=== PATIENT | male | born 1955 | race Caucasian/White ===

== ENCOUNTER 2017-02-20 19:24 | Inpatient (IN) | payer BC ==
--- NOTE | ~2017-02-20 | CN ---
Consultation Report [facility] [address] [place]. [address] NAME: KODAK DOMÍNGUEZ : 57 STATUS : ADM Sharlene PAT#: [id number] AGE: 61 ADM/REG DATE : 02/20/17 MR#: [id number] REPORT SERV DATE: 02/21/17 DICTATED BY: TIMBO TUTTLE DATE: 02/21/17 REPORT STATUS : Draft TRANSCRIBED BY: MODL DATE: 02/21/17 PALLIATIVE CARE CONSULT DATE OF CONSULTATION: 02/21/2017 HISTORY OF PRESENT ILLNESS: The patient is a 61-year-old white male who back around [place] developed some low back pain that persisted and some cough and this eventually led to a biopsy-proven diagnosis of metastatic lung cancer on 01/07/2017. He was also found to have spine, liver, and cerebellar METS. He had one dose radiation to the brain. He was supposed to come back from vacation this week or next week and begin more chemotherapy. He had been on steroids and had to be tapered off those before chemotherapy could be started according to the patient and his . In the meantime on , he had an abrupt decline with severe worsening of his back pain where he had been able to walk around the house slowly and carefully. He now found he could not. The pain was rated as 10/10. He has been seen by Palliative Care, Dr. Tray Schultz [facility] the [facility]. He is now largely bed-bound and his left leg is weak. Now, on a Dilaudid DOUBLE REAMER OPERATOR and a 100 mcg fentanyl patch, he rates his pain as 9/10 going from the lower back into the hips and down the left leg. It is worsened with bending over. It is stabbing like pain. The patient has also had some confusion and drowsiness some of which preceded the Dilaudid DOUBLE REAMER OPERATOR. He has had some difficulty word finding. With me, he is appropriate but drowsy. PAST MEDICAL HISTORY: Pertinent for superficial DVT, hyperlipidemia, and history of colon polyps. FAMILY HISTORY: He is adopted, so he does not know his family history. ALLERGIES: HE HAS NO ALLERGIES. SOCIAL HISTORY: He does have a [id number] history. He quit smoking about 19 years ago after two packs a day for years. Occasional alcohol without problem. 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 He has been twice. Current is with him. He came with one child and she came with one child, both of whom are adults. He had some college. REVIEW OF SYSTEMS: He notes low back pain as described above. Also cough as mentioned above. He has had occasional difficulty word finding, but does appear oriented. REVIEW OF SYSTEMS: He also mentioned that he has had a 35-pound weight loss. PHYSICAL EXAMINATION: VITAL SIGNS: 130/64, 20, 101, 98.7. GENERAL: Pleasant, drowsy, but appropriate white male. HEENT: Pupils are equal. Extraocular motions are intact. No jaundice noted. Consultation Report [place] [id number] [facility] [place]. [address] NAME: KODAK DOMÍNGUEZ : 57 STATUS : ADM Sharlene PAT#: [id number] AGE: 61 ADM/REG DATE : 02/20/17 MR#: [id number] REPORT SERV DATE: 02/21/17 DICTATED BY: TIMBO TUTTLE DATE: 02/21/17 REPORT STATUS : Draft TRANSCRIBED BY: SHERI DATE: 02/21/17 NECK: No carotid bruits are heard. No thyroid masses. LUNGS: Clear without rales or rhonchi. HEART: Regular sinus rhythm without murmurs or gallops, little fast. ABDOMEN: Soft. Active bowel sounds. NEUROLOGIC: He is weak in the left leg and cannot lift it off the bed. Right leg is okay. I believe the patient does have capacity even though he is a little drowsy and has some word finding difficulty. I discussed his care with them. They still wish to try to get chemotherapy and pursue treatment, but he says if it comes down what he wants quality of life over quantity of life, and we discussed DNR and they were agreeable with that. Also wants to do an Advanced Care Plan and designate his as his surrogate. I have already spoken to the social worker masters on the floor about getting that done. In the meantime, I am going to recommend, we add to his current regimen a small amount of methadone, but has unique action on the NMDA receptors and may give him some additional relief. GP/MODL Timbo Tuttle MD / [id number] CC: Satya Mike M.D. NO PCP
--- NOTE | ~2017-02-20 | HP ---
History And Physical [place] [id number] [facility] [place]. [address] NAME: KODAK DOMÍNGUEZ : 57 STATUS : ADM Sharlene PAT#: [id number] AGE: 61 ADM/REG DATE : 02/20/17 MR#: [id number] REPORT SERV DATE: 02/20/17 DICTATED BY: DORY MCGOVERN DATE: 02/20/17 REPORT STATUS : Draft TRANSCRIBED BY: MODL DATE: 02/20/17 DATE OF ADMISSION: 02/20/2017 CHIEF COMPLAINT: A 61-year-old male with metastatic lung cancer, now presenting with uncontrolled pain, leg swelling, constipation. HISTORY OF PRESENT ILLNESS: The patient's history was obtained through careful interview with the patient and , coupled with review of [facility]. The patient was first diagnosed with large right upper lung cancer from biopsy in 01/07/2017 and has been followed by Dr. Cordova with anticipated chemotherapy to be started sometime this summer. He has known metastases to the right cerebellum to the spine to the liver and to the lymph nodes of the mediastinum. The patient has undergone one treatment of radiation to the brain on 02/09/2017 under the care of Dr. Ballesteros. The patient's main complaint has been increasing back pain. He has known metastases to the spine and is considered high risk for radiation therapy to the spine but still has been considered. He describes bilateral hip pain to his lower back, radiating upward into the spine to the thoracic area. He states "it is like someone stucked me in the back with a knife and is digging in," a 10+ out of 10 severity that has become intractable despite large dose oral narcotic pain medications. He has also had increasing constipation related to narcotic use. He describes abdominal cramping discomfort, 5 to 8/10 severity. He has not had a bowel movement since 02/17/2017 and even this one was small. He has been taking increasing doses of laxatives without much success. He has had increasing lower extremity edema over about the last week and a half, but it has really progressed over the last two days. He also describes increasing shortness of breath characterized by dyspnea on exertion but no cough. No chest pain. He describes confusion, agitation, loss of memory. He has also lost 35 pounds since 09/2016 going from 215 pounds to 180 pounds. Recently, the patient has completed a steroid course for "swelling" related to cancer. REVIEW OF SYSTEMS: Otherwise, a 14-point review of systems was obtained and was negative. PAST MEDICAL HISTORY: 1. Metastatic lung cancer, diagnosed 12/2016, a primary disease in the right upper lung with right cerebellum, brain metastases, liver mets, mediastinal lymphadenopathy mets, History And Physical [address] [address] NAME: KODAK DOMÍNGUEZ : 57 STATUS : ADM Sharlene PAT#: [id number] AGE: 61 ADM/REG DATE : 02/20/17 MR#: [id number] REPORT SERV DATE: 02/20/17 DICTATED BY: DORY MCGOVERN DATE: 02/20/17 REPORT STATUS : Draft TRANSCRIBED BY: SHERI DATE: 02/20/17 and spinal metastases, followed by Dr. Cordova and Dr. Ballesteros. 2. Elevated cholesterol. 3. Colon polyps, seen by Dr. Cox. PAST SURGICAL HISTORY: Umbilical hernia repair. ALLERGIES: NO KNOWN DRUG ALLERGIES. SOCIAL HISTORY: The patient was a heavy smoker, two packs per day, being 17 years old and 41 years old, but now has quit. He was drinking alcohol daily up into his recent diagnosis but now is absent and he is , lives with his daughter as well. He owns a truck. FAMILY HISTORY: Adopted. Knows nothing about his biological family. CURRENT MEDICATIONS: Include acetylcysteine 600 mg p.o. b.i.d., vitamin D, coenzyme Q10, vitamin B12, Flexeril 10 mg p.o. t.i.d. as needed, Colace 100 mg p.o. b.i.d. as scheduled, Duragesic patch 100 mcg, folic acid 1 mg p.o. daily, lactulose 5 mL p.o. t.i.d., Remeron 15 mg p.o. at bedtime, fish oil, Roxicodone 30 mg p.o. q.6 hours p.r.n., MiraLAX packet daily, Senokot 2 tablets p.o. b.i.d., probiotics, turmeric, and magnesium. PHYSICAL EXAMINATION: VITAL SIGNS: Temperature 97.8, pulse 104, blood pressure 117/56, respiratory rate 16, and O2 saturation 97% on room air. GENERAL: An ill-appearing male, in evidence of distress secondary to pain complaint. HEENT: Pupils equal, round, and reactive to light. No conjunctival pallor. No scleral icterus. Nares are patent. Oropharynx is clear of obstruction. Moist mucous membranes. NECK: Trachea midline. No thyromegaly. LYMPH: No cervical lymphadenopathy. No supraclavicular lymphadenopathy. RESPIRATORY: The patient has almost absent breath sounds in the right upper lung which seemed to correspond to his mass. Otherwise, clear to auscultation at bases. No wheezes, no rales, no rhonchi. Normal respiratory effort. CARDIOVASCULAR: Tachycardic. Regular rhythm. No murmurs, rubs, or gallops. The patient does have deeply pitting lower extremity edema extending to the knees symmetrically. ABDOMEN: Diffusely tender by exam. No rebound. No guarding. Nondistended. Diminished bowel tones. No hepatosplenomegaly. No guarding. No rebound. DERMATOLOGICAL: Diaphoretic. Warm extremities. No pallor. No cyanosis. PSYCHIATRIC: Normal affect. Good mood. Alert and oriented x3. LABORATORY DATA: White blood cell count 8.8, hemoglobin 9.5, hematocrit 30.3, and platelets 297. Sodium 135, potassium 3.4, chloride 99, bicarb 29, BUN 17, creatinine 0.71, glucose 109, troponin 0.29, INR 1.2. STUDIES: 1. Chest x-ray by my own evaluation shows a massive right upper lung cancer that occupies about half of the entire lung field. 2. EKG by my own evaluation shows sinus rhythm, peaked T-waves. History And Physical [address] [address] NAME: KODAK DOMÍNGUEZ : 57 STATUS : ADM Sharlene PAT#: [id number] AGE: 61 ADM/REG DATE : 02/20/17 MR#: [id number] REPORT SERV DATE: 02/20/17 DICTATED BY: DORY MCGOVERN DATE: 02/20/17 REPORT STATUS : Draft TRANSCRIBED BY: MODYusef DATE: 02/20/17 ASSESSMENT AND PLAN: 1. Pain control with metastatic spinal disease. Place on a WAGON DRIVER Dilaudid. Consult Dr. Ballesteros, radiation oncologist. 2. Metastatic lung cancer, adenocarcinoma to mediastinum, liver, spine, and brain. Consult Dr. Cordova, oncologist. 3. A superficial vein thrombosis. The patient is considered high risk for progression to DVTs. Place on heparin drip IV, then transition to Lovenox (?). 4. Elevated troponin. Follow closely. Negative EKG. Consult Cardiology. Start on heparin drip IV for now. Check brain natriuretic peptide. 5. Constipation. Check an x-ray of the abdomen. Try magnesium citrate. KPL/MODL Dory Mcgovern M.D. / [id number] CC: Ramon Cao M.D. Gregory R. Sutton, MD Jonathan T Whaley, MD
--- NOTE | ~2017-02-20 | DS ---
Discharge Summary [facility] [address] [place]. [address] NAME: KODAK DOMÍNGUEZ : 57 STATUS : DIS IN PAT#: [id number] AGE: 61 ADM/REG DATE : 02/20/17 MR#: [id number] REPORT SERV DATE: 02/26/17 DICTATED BY: FRANSICO WILSON II DATE: 02/25/17 REPORT STATUS : Draft TRANSCRIBED BY: MODL DATE: 02/25/17 ADMISSION DATE: 02/20/2017 DISCHARGE DATE: 02/25/2017 DISCHARGE DIAGNOSES: 1. Intractable back pain. 2. Metastatic lung cancer to mediastinum, liver, spine, and brain followed by Dr. Cordova. 3. Opioid-induced constipation. 4. Demand ischemia. 5. Generalized debility. CONSULTS: Dr. Cordova with [facility] and Dr. Perez with Palliative Care. BRIEF HISTORY OF PRESENT ILLNESS: The patient is a 61-year-old male with the above history, who presented to [facility] due to uncontrolled back pain and constipation. For detailed history and physical examination, please see Dr. Mi's note from 02/20/2017. HOSPITAL COURSE: On admission, the patient's labs were fairly unremarkable, except for mildly elevated troponin of 0.29. He did not have any chest pain or ischemic changes on EKG, but Cardiology was consulted and Dr. Amado thought this likely represented demand ischemia. No further workup was done. His troponin trended down. Chest x-ray showed his known large bronchogenic malignancy in the right, otherwise no new findings. He did have some swelling in his legs and a lower extremity Doppler showed a distal calf thrombus and follow up Doppler did not show any further evidence of thrombus. The patient's main complaint was severe uncontrolled pain. Dr. Perez assistance was greatly appreciated. He was initially placed on Dilaudid SALES ORDER SPECIALIST, started on Decadron IV in addition to his fentanyl patch. He was able to be slowly weaned off his Dilaudid SALES ORDER SPECIALIST with much improvement in his pain. His functional status on admission was nearly bedbound and incapacitated, but with pain control and steroids, he was able to slowly work with PT and get up and actually start ambulating with a walker. He was also started on methadone. Current regimen includes fentanyl patch 100 mcg/hour, Dilaudid 2 mg p.o. q.4 plus q.1 p.r.n. as well as methadone 5 mg p.o. t.i.d. We have also continued Decadron 4 mg p.o. b.i.d. Currently, the patient's pain is much better controlled and clinically stable. He did receive one dose of carbo/Taxol by Dr. Cordova on 02/24/2017. Seems to be tolerating it well. Overall, he will see Dr. Cordova on Tuesday for followup in clinic. DISCHARGE MEDICATIONS: 1. Acetylcysteine 600 mg p.o. b.i.d. 2. Aspirin 81 mg p.o. daily. 3. Vitamin B12 1000 mg p.o. daily. 4. Vitamin D 5000 units p.o. daily. 5. Coenzyme Q10 200 mg p.o. daily. 6. Decadron 4 mg p.o. b.i.d. 7. Colace 100 mg p.o. b.i.d. 8. Duragesic 100 mcg/hour transdermal patch q.72 hours. 9. Folic acid 1 mg p.o. daily. Discharge Summary [address] [address] NAME: KODAK DOMÍNGUEZ : 57 STATUS : DIS IN PAT#: [id number] AGE: 61 ADM/REG DATE : 02/20/17 MR#: [id number] REPORT SERV DATE: 02/26/17 DICTATED BY: FRANSICO WILSON II DATE: 02/25/17 REPORT STATUS : Draft TRANSCRIBED BY: MODL DATE: 02/25/17 10.Dilaudid 2 mg p.o. q.4 hours plus q.1 hour p.r.n. pain. 11.Lactulose 5 mL p.o. t.i.d. p.r.n. 12.Methadone 5 mg p.o. t.i.d. 13.Remeron 15 mg p.o. q.h.s. 14.Fish oil 1200 mg p.o. b.i.d. 15.MiraLAX one pack p.o. daily. 16.Senna two tablets p.o. b.i.d. 17.Flexeril 10 mg p.o. t.i.d. p.r.n. muscle spasm. 18.Probiotic tablet daily. 19.Turmeric tablet daily. 20.Magnesium 200 mg p.o. b.i.d. DISCHARGE INSTRUCTIONS: The patient will follow up with Dr. Cordova on Tuesday. CHRISTY/SHERI Fransico Wilson II, MD / [id number] CC: Fransico Wilson II, MD
--- NOTE | ~2017-02-20 | PRECARD ---
H&P [facility] [address] [facility] [place]. [address] NAME: ROBERT GUADALUPE : 57 STATUS : ADM Sharlene PAT#: [id number] AGE: 61 ADM/REG DATE : 02/20/17 MR#: [id number] REPORT SERV DATE: 02/21/17 DICTATED BY: KIRA AMADO DATE: 02/21/17 REPORT STATUS : Draft TRANSCRIBED BY: SHERI DATE: 02/21/17 DATE OF ADMISSION: 02/20/2017 Mr. Robert Guadalupe is a 61-year-old gentleman with metastatic lung cancer, admitted for diffuse pain, Cardiology was consulted because of troponin level of 0.29. Mr. Guadalupe was diagnosed with lung cancer last month. He has metastasis to the right cerebellum, spine, liver, lymph nodes, and has undergone radiation therapy to the brain all ready. Discussed to begin chemotherapy this summer. He is admitted with a back discomfort. He has also had bilateral hip discomfort, with abdominal cramping. He has chest discomfort only with coughing. He had no exertional discomfort whatsoever. No orthopnea, PND. No palpitations. He has no known cardiovascular disease. He has no history of diabetes, hypertension. He quit smoking about twenty years ago. PAST MEDICAL HISTORY: Hyperlipidemia, metastatic lung cancer. SOCIAL HISTORY: He previously owned and operated a elissa business. MEDICINES: Acetylcysteine, vitamin D, Coenzyme Q10, vitamin B, Flexeril, Colace, Duragesic, folic acid, lactulose, Remeron, fish oil, Roxicodone, MiraLAX, Senokot, probiotic, turmeric, and magnesium. FAMILY HISTORY: He was adopted, unknown family history of premature coronary disease. REVIEW OF SYSTEMS: A complete review of systems obtained, pertinent negative and remarkable, except as noted above and below, all systems addressed. PHYSICAL EXAMINATION: VITAL SIGNS: Blood pressure 130/60, heart rate about 80 to 90. GENERAL: Comfortable, in no acute distress. HEENT: No xanthelasma; lips without cyanosis LUNGS: Clear to auscultation, no wheezes, rales or rhonchi; good breath sounds. COR: No JVD or hepatojugular reflux, no murmurs, rubs or gallops, impulse mid clavicular line without carotid or abdominal bruits; normal S1 and S2. ABDOMEN: Bowel sounds positive, normal activity, without tenderness, masses or hepatosplenomegaly. EXTREMITIES: No edema, cyanosis. SKIN: Normal turgor. Ms: Normal muscle strength, without kyphosis/scoliosis. NEURO/PSYCH: Alert and oriented times 4, no apparent anxiety or depression. LABORATORY DATA: White count 7.3, hematocrit 26.9, platelet count is 273,000. BUN is 14, H&P [address] [address] NAME: ROBERT GUADALUPE : 57 STATUS : ADM Sharlene PAT#: [id number] AGE: 61 ADM/REG DATE : 02/20/17 MR#: [id number] REPORT SERV DATE: 02/21/17 DICTATED BY: KIRA AMADO DATE: 02/21/17 REPORT STATUS : Draft TRANSCRIBED BY: SHERI DATE: 02/21/17 creatinine is 0.6, troponin 0.29 and 0.32. BNP is 420. EKG, sinus rhythm without ischemia. ASSESSMENT: Mr. Guadalupe is a very nice 61-year-old gentleman with metastatic lung cancer. He has diffuse back pain as well as hip pain. He has had chest comfort only with coughing. No symptoms suggestive of coronary ischemia. EKG did not demonstrate ischemia. I do not think he has an acute coronary syndrome. He may have demand ischemia. PLAN: 1. We will plan to continue current medical regimen. I will add aspirin. 2. Continue his troponin evaluation. 3. Echocardiogram to assess left ventricular function. BLAYNE/SHERI Kira Amado M.D. / [id number] CC: Satya Mike M.D.
[2017-02-20 17:45] LABS: BASOPHILS 1.3 %; BASOPHILS ABSOLUTE 0.11 10/3/uL (0.0-0.16); EOSINOPHILS ABSOLUTE 0.09 10/3/uL (0.0-0.53); ER CBC TAT 0 Hrs 05 Mins; IMMATURE GRANULOCYTES 0.7 %; IMMATURE GRANULOCYTES ABSOLUTE 0.06 10/3/uL (0.0-0.11); LYMPHOCYTES 14.8 %; MEAN CORPUS HGB CONC 31.4 g/dL (32.0-36.0); MEAN CORPUSCULAR HEMOGLOB 26.8 pg (26.0-34.0); MEAN CORPUSCULAR VOLUME 85.4 fL (80-100); MEAN PLATELET VOLUME 9.1 fL (9.2-13.0); MONOCYTES 11.5 %; MONOCYTES ABSOLUTE 1.01 10/3/uL (0.21-1.20); NEUTROPHILS 70.7 %; NEUTROPHILS ABSOLUTE 6.19 10/3/uL (2.02-8.40); PLATELET COUNT 297 10/3/uL (150-400); RBC DISTRIBUTION WIDTH 16.2 % (12.0-16.0); RED CELL COUNT 3.55 10/6/uL (4.7-6.1); WHITE BLOOD CELLS 8.8 10/3/uL (4.5-10.5)
[2017-02-20 17:47] LABS: HEMATOCRIT 30.3 % (40.0-51.0); HEMOGLOBIN 9.5 g/dL (13.6-17.8); MANUAL DIFF NO %
[2017-02-20 17:53] LABS: INTERNATIONAL NORMAL RATI 1.2 UNITS (-); PARTIAL THROMBO TIME 30.3 SEC (22.5-37.2); PROTIME (NOT ORD) 14.9 SEC (12.0-14.5)
[2017-02-20 18:04] LABS: BUN (BLOOD UREA NITROGEN) 17 MG/DL (6-23); CALCIUM, SERUM 9.5 MG/DL (8.5-10.4); CHEST PAIN PROFILE TAT 0 Hrs 24 Mins; CHLORIDE, SERUM 99 MMOL/L (96-112); CO2 (CARBON DIOXIDE) 29 MMOL/L (24-34); CREATININE 0.71 MG/DL (0.70-1.30); GFR AFRICAN AMERICAN 118 ML/MIN (>=60); GFR NON AFRICAN AMERICAN 102 ML/MIN (>=60); GLUCOSE, SERUM 109 MG/DL (60-99); POTASSIUM, SERUM 3.9 MMOL/L (3.5-5.3); SODIUM, SERUM 135 MMOL/L (135-148); TROPONIN I 0.29 NG/ML (<0.05)
[2017-02-20 18:46] LABS: ALBUMIN 2.5 G/DL (3.5-5.0); ALKALINE PHOSPHATASE 163 U/L (45-117); DIRECT BILIRUBIN 0.2 MG/DL (0.0-0.4); INDIRECT BILIRUBIN(NOT ORDER) 0.5 MG/DL (0.1-0.9); SGOT(AST) 39 U/L (5-40); SGPT(ALT) 18 U/L (5-65); TOTAL BILIRUBIN 0.7 MG/DL (0-1.2); TOTAL PROTEIN 6.4 G/DL (6.0-8.5)
[~2017-02-20 19:24] MED LIST: CONSTULOSE PO; CRESTOR5 MG PO; DURA100 TOP; FISH OIL1200 MG PO; FLEX PO; NAC600 MG PO; PROBIOTIC PO; REM15 PO; ROXICODONE30 MG PO; SENTAB PO
[2017-02-20] MEDS ORDERED: MAGNESIUM PO (19:25)
[2017-02-20] MEDS ORDERED: TURMERIC PO (19:25)
[2017-02-20] MEDS ORDERED: D 5000 PO (19:26)
[2017-02-20] MEDS ORDERED: FOLIC PO (19:26)
[2017-02-20] MEDS ORDERED: MIRALAX POWDER1 PKT PO (19:26)
[2017-02-20] MEDS ORDERED: CYANO1000T PO (19:26)
[2017-02-20] MEDS ORDERED: DSS PO (19:26)
[2017-02-20] MEDS ORDERED: CO Q-10200 MG PO (19:28)
[2017-02-21 04:33] LABS: BASOPHILS ABSOLUTE 0.07 10/3/uL (0.0-0.16); EOSINOPHILS 0.7 %; EOSINOPHILS ABSOLUTE 0.05 10/3/uL (0.0-0.53); HEMOGLOBIN 8.4 g/dL (13.6-17.8); IMMATURE GRANULOCYTES 0.4 %; IMMATURE GRANULOCYTES ABSOLUTE 0.03 10/3/uL (0.0-0.11); LYMPHOCYTES 15.6 %; LYMPHOCYTES ABSOLUTE 1.14 10/3/uL (0.67-4.30); MEAN CORPUS HGB CONC 31.2 g/dL (32.0-36.0); MEAN CORPUSCULAR HEMOGLOB 26.7 pg (26.0-34.0); MEAN CORPUSCULAR VOLUME 85.4 fL (80-100); MONOCYTES 12.3 %; NEUTROPHILS ABSOLUTE 5.14 10/3/uL (2.02-8.40); PLATELET COUNT 272 10/3/uL (150-400); RBC DISTRIBUTION WIDTH 16.3 % (12.0-16.0); RED CELL COUNT 3.15 10/6/uL (4.7-6.1); WHITE BLOOD CELLS 7.3 10/3/uL (4.5-10.5)
[2017-02-21 04:36] LABS: HEMATOCRIT 26.9 % (40.0-51.0); MANUAL DIFF NO %
[2017-02-21 04:37] LABS: INTERNATIONAL NORMAL RATI 1.2 UNITS (-); PARTIAL THROMBO TIME 53.6 SEC (22.5-37.2)
[2017-02-21 04:39] LABS: CALCIUM IONIZED 4.99 MG/DL (3.80-4.80)
[2017-02-21 04:57] LABS: A/G RATIO 0.6 (0.7-1.9); ALBUMIN 2.1 G/DL (3.5-5.0); ALKALINE PHOSPHATASE 141 U/L (45-117); BUN (BLOOD UREA NITROGEN) 14 MG/DL (6-23); CALCIUM, SERUM 8.8 MG/DL (8.5-10.4); CHLORIDE, SERUM 100 MMOL/L (96-112); CO2 (CARBON DIOXIDE) 28 MMOL/L (24-34); CREATININE 0.63 MG/DL (0.70-1.30); GFR AFRICAN AMERICAN 124 ML/MIN (>=60); GFR NON AFRICAN AMERICAN 107 ML/MIN (>=60); GLOBULIN 3.6 G/DL (2.5-4.1); GLUCOSE, SERUM 106 MG/DL (60-99); POTASSIUM, SERUM 4.1 MMOL/L (3.5-5.3); SGOT(AST) 35 U/L (5-40); SGPT(ALT) 14 U/L (5-65); SODIUM, SERUM 136 MMOL/L (135-148); TOTAL BILIRUBIN 0.6 MG/DL (0-1.2); TOTAL PROTEIN 5.7 G/DL (6.0-8.5); TROPONIN I 0.32 NG/ML (<0.05)
[2017-02-22 07:16] LABS: ALBUMIN 2.2 G/DL (3.5-5.0); CALCIUM, SERUM 9.4 MG/DL (8.5-10.4); CHLORIDE, SERUM 98 MMOL/L (96-112); CO2 (CARBON DIOXIDE) 25 MMOL/L (24-34); CREATININE 0.49 MG/DL (0.70-1.30); GFR AFRICAN AMERICAN 138 ML/MIN (>=60); GFR NON AFRICAN AMERICAN 119 ML/MIN (>=60); GLUCOSE, SERUM 123 MG/DL (60-99); PHOSPHORUS, SERUM 3.5 MG/DL (2.5-4.5); POTASSIUM, SERUM 4.5 MMOL/L (3.5-5.3); SODIUM, SERUM 134 MMOL/L (135-148)
[2017-02-22 07:17] LABS: BUN (BLOOD UREA NITROGEN) 10 MG/DL (6-23); TROPONIN I 0.13 NG/ML (<0.05)
[2017-02-22 07:30] LABS: BASOPHILS 0.6 %; BASOPHILS ABSOLUTE 0.03 10/3/uL (0.0-0.16); EOSINOPHILS 0 %; HEMOGLOBIN 9.4 g/dL (13.6-17.8); IMMATURE GRANULOCYTES ABSOLUTE 0.05 10/3/uL (0.0-0.11); LYMPHOCYTES 10.2 %; LYMPHOCYTES ABSOLUTE 0.52 10/3/uL (0.67-4.30); MEAN CORPUS HGB CONC 32.4 g/dL (32.0-36.0); MEAN CORPUSCULAR HEMOGLOB 27.3 pg (26.0-34.0); MEAN CORPUSCULAR VOLUME 84.3 fL (80-100); MEAN PLATELET VOLUME 9.4 fL (9.2-13.0); MONOCYTES 4.9 %; MONOCYTES ABSOLUTE 0.25 10/3/uL (0.21-1.20); NEUTROPHILS 83.3 %; NEUTROPHILS ABSOLUTE 4.23 10/3/uL (2.02-8.40); PLATELET COUNT 321 10/3/uL (150-400); RBC DISTRIBUTION WIDTH 15.9 % (12.0-16.0); RED CELL COUNT 3.44 10/6/uL (4.7-6.1); WHITE BLOOD CELLS 5.1 10/3/uL (4.5-10.5)
[2017-02-22 07:31] LABS: MANUAL DIFF NO %
[2017-02-24 10:50] LABS: CREATININE 0.67 MG/DL (0.70-1.30)
[2017-02-25] MEDS ORDERED: DOLOPHINE5 MG PO (18:14)
[2017-02-25] MEDS ORDERED: DIL2TAB PO ×2 (18:15→18:16)
[2017-02-25] MEDS ORDERED: DEX4 PO (18:15)
[2017-02-25] MEDS ORDERED: PR12.5 PO (18:16)
[2017-02-25] MEDS ORDERED: ZOFRAN4 PO (18:16)
== END 2017-02-25 19:00 | disposition home or self-care (01) | DRG 948 ==
LOC: ER 19:24 → 4EA 21:11
PROVIDERS: Emergency Medicine; Hospitalist; Internal Medicine; Internal Medicine Hematology & Oncology
DX: G89.3 Neoplasm related pain (acute) (chronic) (principal); C77.1 Secondary and unspecified malignant neoplasm of intrathoracic lymph nodes; C34.90 Malignant neoplasm of unspecified part of unspecified bronchus or lung; C78.7 Secondary malignant neoplasm of liver and intrahepatic bile duct; C78.1 Secondary malignant neoplasm of mediastinum; C79.31 Secondary malignant neoplasm of brain; I24.8 Other forms of acute ischemic heart disease; I82.819 Embolism and thrombosis of superficial veins of unspecified lower extremity; C79.51 Secondary malignant neoplasm of bone; Z66 Do not resuscitate; K59.03 Drug induced constipation; T40.2X5A Adverse effect of other opioids, initial encounter; Z51.5 Encounter for palliative care
CPT/HCPCS: 71020; 74000; 80048; 80053; 80069; 80076; 81001; 82330; 82565; 83605; 83735; 83880; 84100; 84443; 84484; 85025; 85610; 85730; 93005; 93306; 93970; 96374; 97116-GP; 97161-GP; 97165-GO; 99285; A9270-GY; J1170; J1200; J1720; J2405; J9045; J9267